=== PATIENT | female | born 1980 | race Caucasian/White ===

== ENCOUNTER → 2017-06-29 | Outpatient (CLI) | payer OTHER ==
[~2017-06-29] MED LIST: ACETAMINOPHEN-1 EAC1 PO; ALLERGY RELIEF10 M5 PO; AZITHROMYCIN 2250 MG; HYDROCODONE-ACE15 ML PO; IBUPROFEN 200200 M1 PO; PRILOSEC OTC20 MG PO
--- NOTE | ~2017-06-29 | SLE ---
[facility] [address] [place] [address] POLYSOMNOGRAPHY STUDY Name: SARAH COPPOLA Room #: REG [facility]#: [id number] Admission: 06/29/17 Attend Phys: Kevin Wagner MD, F Discharge: Date of : 80 Report #: [id number] THIS REPORT FOR: //name// CC: Tricia Wagner MD HISTORY: A 36-year-old, height 5 feet 8 inches, weight 262 pounds. The patient usually goes to bed between 9:00 and 9:30, gets out of bed at 9:00 a.m., does not feel refreshed. Positive snoring and daytime somnolence. COMMENTS: SLEEP SUMMARY: Total sleep time 281.5 minutes, sleep efficiency 59%. Sleep latency 3.5 minutes, REM latency 156 minutes. SLEEP STAGE: 1-18%, 2-60%, 3-6%, REM-16%. Central apnea 0, mixed apnea 1, obstructive apnea 0, hypopnea 23. Apnea-hypopnea index of 5.1 events per sleep hour. Non-REM AHI 4.3, REM AHI 9.4. Respiratory effort related arousal 4 events per sleep hour. Respiratory disturbance index of 9.2 events per sleep hour. Supine AHI 5.1 events per sleep hour. Periodic limb movement with arousal index of 0 events per sleep hour. Low oxygen saturation 88%. IMPRESSION: 1. Obstructive sleep apnea/hypopnea, G47.33. 2. Periodic limb movement with arousal index of zero events per sleep hour. 3. No significant arrhythmia noted. SUGGESTIONS: 1. In addition to specific therapy, the patient should be cautioned regarding driving or operating dangerous machinery unless fully alert. 2. TSH and weight loss may be considered. 3. We cannot recommend sleep position retraining as the patient was not seen in other positions besides supine. 4. Oral appliance or appropriate surgery may be considered with appropriate followup. further evaluation regarding etiology of snoring is recommended. 5. May consider either a home auto-titrating CPAP or a CPAP titration night depending on the patient's clinical circumstances. 6. If sign and symptoms do not improve with therapy, further evaluation is [facility] [address] [place] [address] POLYSOMNOGRAPHY STUDY Name: ANATSARAH Room #: [facility]#: [id number] Admission: 06/29/17 Attend Phys: Kevin Wagner MD, F Discharge: Date of : 80 Report #: [id number] recommended. Please do not hesitate to contact me if I may be of further assistance. <ELECTRONICALLY SIGNED> By: Ty Zee MD 07/09/174 56 40 Ty Zee MD /nt
== END ==
LOC: SLEEPLAB 13:24 → EDSTATUS 16:38
DX: G47.33 Obstructive sleep apnea (adult) (pediatric) (principal)

== ENCOUNTER 2017-10-25 05:23 | Inpatient (IN) | payer OTHER ==
[~2017-10-25] VITALS: Ht 172.7 cm; Wt 114.8 kg
--- NOTE | ~2017-10-25 | PATH ---
[facility] [address] [place] [address] PATHOLOGY RPT PROCEDURE Name: SIRENA LYN Room #: 412-P [facility] [place] M.R.#: [id number] Admission: 10/25/17 Date of : 80 Discharge: 10/26/17 Report #: [id number] Path Case #: [id number] [facility] Accession Number: [id number] . 01 Material submitted: . GASTRIC SLEEVE . 01 Clinical history: . Morbid obesity . 02 Diagnosis: Stomach, partial stomach, partial sleeve gastrectomy: - Mild chronic inflammation with rare lymphoid aggregates. - Negative for intestinal metaplasia or atrophy. (IUV:db; 10/26/2017) LBQ/10/26/2017 . 02 Electronically signed: . Valeria Glover MD, Pathologist NPI- [id number] . 01 Gross description: . The specimen is received in formalin, labeled "Sirena Lyn, gastric sleeve". Received is a partial gastrectomy specimen with a stapled margin of resection measuring 18.8 x 5.5 cm in greatest dimensions. The serosal surface is pink-carter and shiny. Opening the specimen reveals a pink-carter mucosa with multiple possible nodules ranging from 0.2-0.5 cm. The specimen is submitted representatively in cassettes A1-A3. (SDY; 10/25/2017) SYU/SYU . 02 Pathologist provided ICD-10: K29.50 . 02 CPT . 460356 Performed at: [address], [place] [id number] MD Carlos Alberto Nathan MD Phone: [phone] Performed at: [address] [id number] MD Valeria Glover MD Phone: [phone]
--- NOTE | ~2017-10-25 | O ---
[facility] [place] [address] OPERATIVE REPORT Name: SARAH COPPOLA Room #: 412-P [facility] IN .R.#: [id number] Admission: 10/25/17 Attend Phys: Kevin Wagner MD, F Discharge: 10/26/17 Date of : 80 Report #: [id number] THIS REPORT FOR: //name// CC: Tricia Wagner DATE OF SERVICE: 10/25/2017 SURGEON: Kevin Wagner M.D. COMMODITIES REQUIREMENTS ANALYST: Roshni Daniel M.D. PREOPERATIVE DIAGNOSES: 1. Morbid obesity (body mass index 40). 2. Gastroesophageal reflux disease. 3. Arthritis. 4. Depression. POSTOPERATIVE DIAGNOSES: 1. Morbid obesity (body mass index 40). 2. Intraabdominal adhesions. 3. Gastroesophageal reflux disease. 4. Arthritis. 5. Depression. PROCEDURES: 1. Laparoscopic sleeve gastrectomy with EGD. 2. Laparoscopic lysis of adhesions. ANESTHESIA: General endotracheal anesthesia and local anesthetic. ESTIMATED BLOOD LOSS: 5 mL. SPECIMEN: Lateral stomach. COMPLICATIONS: None appreciated. INDICATIONS FOR PROCEDURE: This is a 37-year-old female patient who stands 5 feet 8 inches, weighing 262 pounds at her last visit with a BMI of nearly 40 (39.9). The patient had no significant weight loss despite diet and exercise changes she instituted based on our previous discussions. The patient has had difficulty with her weight most of her life, worsened since early adulthood and with . She has tried numerous weight loss programs and plans including specialized diets, exercises and prescription medications. The most weight she has lost is 70 pounds. Any amount of weight she has lost, she has quickly regained plus additional weight after stopping the modality. She has numerous [facility] [address] [place] [address] OPERATIVE REPORT Name: SARAH COPPOLA Kimberly Room #: 412-P [facility] IN ..#: [id number] Admission: 10/25/17 Attend Phys: Kevin Wagner MD, F Discharge: 10/26/17 Date of : 80 Report #: [id number] weight associated comorbid conditions. She has been cleared from a multidisciplinary standpoint including clearance by her primary care physician, dietary clearance and psychological clearance. She presents today for laparoscopic sleeve gastrectomy for weight loss. OPERATIVE FINDINGS: On EGD, the patient's esophagus was normal down to the GE junction and Z-line where a hiatal hernia was not appreciated. Upon entrance into the stomach and beyond the pylorus to the third portion of the duodenum, there were no polyps, masses, diverticula or ulcers seen. On retroflexion of the scope, there was no evidence for a hiatal hernia. Laparoscopically, the patient had an enlarged stomach as expected. Her liver appeared normal. Intraabdominal adhesions were present, which required a laparoscopic takedown for port placement. The gastric sleeve staple line was started at 4 cm lateral/proximal to the pylorus and was located 3 cm lateral to the incisura the stomach and 1 cm lateral to the GE junction. There was no evidence for staple line leak. Immediately after applying the 10 mL of Tisseel to the staple line, the gastroscope was used to gently insufflate carbon dioxide into the sleeve to check for the presence of air bubbles forming within the Tisseel. As no air bubbles were seen, there was no evidence for a leak. The excised stomach held 1000 mL of fluid on the back table. No other significant intra-abdominal pathology was seen. At the conclusion of the operation, sponge, needle and instrument counts were correct. DESCRIPTION OF PROCEDURE IN DETAIL: After the benefits and risks of the procedure were explained to the patient which include but are not limited to risks of bleeding, infection, postoperative pain, postoperative expectations and risks of DVT and pulmonary embolus, informed consent was obtained. The patient was identified in the preoperative holding area. The patient was given IV antibiotics as documented in the chart in line with SCIP protocol. The patient was then taken to the operating room and was placed in the supine position. The patient was given IV sedation and was intubated without incident. SCDs were placed on the patient's bilateral lower extremities prior to induction of anesthesia. The patient had been placed in the modified low lying dorsal lithotomy position in stirrups on the beanbag. The beanbag and the patient were taped to the bed to secure the patient. A time-out was then performed to correctly identify the patient and procedure. An orogastric tube was placed by anesthesia. A bite block was placed and the fiberoptic EGD scope was passed into the patient's oropharynx, down the esophagus, into the stomach, and into the third portion of the duodenum. Findings are as noted above. The scope was slowly withdrawn into the antrum and the scope was retroflexed. The hiatus was visualized. The scope was then straightened and the end of the gastroscope was placed at the pylorus. The stomach was decompressed with the scope. [facility] [address] [place] [address] OPERATIVE REPORT Name: SARAH COPPOLA Room #: 412-P [facility] IN M.R.#: [id number] Admission: 10/25/17 Attend Phys: Kevin Wagner MD, F Discharge: 10/26/17 Date of : 80 Report #: [id number] The patient's abdomen was then prepped and draped in the standard sterile fashion with surgical prep. Local anesthetic was infiltrated into the skin and subcutaneous tissue in the left supraumbilical area where a sharp #15-blade scalpel was used to make a 5-mm incision. The 5-mm Visiport was placed intraperitoneally with the 5-mm 0-degree angled laparoscope. Pneumoperitoneum was then achieved with insufflation of carbon dioxide to 15 mmHg. A 5-mm 30-degree angled laparoscope was then inserted. The 15-mm port was placed in the right supraumbilical area after local anesthetic was infiltrated into the skin and subcutaneous tissue and an appropriately sized incision was made. Two additional 5 mm ports were placed in the left abdomen after local anesthetic was infiltrated and incisions were made. All ports were placed under direct visualization. The patient was then placed in reverse Trendelenburg position. Local anesthetic was infiltrated into the skin and subcutaneous tissue in the subxiphoid area and a 5-mm incision was made through which a 5-mm obturator was passed into the abdominal cavity through the fascia to create a passageway for the Niharika liver retractor. The retractor was placed to retract the liver anteriorly. The retractor was held in place with the [employer] apparatus. All abdominal adhesions were then taken down with blunt dissection, sharp dissection and judicious use of the ultrasonic dissector. The gastrosplenic ligament and short gastric vessels were then divided using the ultrasonic dissector with appropriate traction. Bleeding points were made hemostatic with the ultrasonic dissector. Dissection was carried proximally up to the left nandini of the diaphragm. The distal end point of dissection was then measured at 4 cm proximal to the pylorus. The short gastric vessels and gastrocolic ligaments were dissected to that level. The stomach was then rotated medially to visualize any posterior attachments/adhesions to the stomach. The adhesions were dissected with a combination of sharp dissection and use of the ultrasonic dissector. The endoscope was then slightly withdrawn to place it along the lesser curvature of the stomach. Suction was applied to the orogastric tube which was then removed, leaving the endoscope in place as a 34-Frisian bougie. The gastric sleeve was then created. Two black loads of the powered endoscopic LINDA stapler buttressed with Viji-Strips were used to staple and divide the stomach 4 cm proximal to the pylorus. Additional green loads buttressed with Viji-strips were used to staple off the remainder of the stomach using the endoscope as the bougie. Care was taken to ensure that greater than 3 cm of space was present between the incisura and the staple line. The stomach was fully transected and placed in the right upper quadrant of the abdomen for later removal. 10 mL of Tisseel was applied to the entire length of the staple line with the Duplospray aerosolizer to fully ensure hemostasis. The leak test was performed next. The sleeve was insufflated with the endoscope which was slowly withdrawn. No air bubbles were seen forming in the Tisseel laparoscopically. Endoluminally, no bleeding was seen. The stomach [address] [address] OPERATIVE REPORT Name: SARAH COPPOLA Room #: 412-P [facility] M.R.#: [id number] Admission: 10/25/17 Attend Phys: Kevin Wagner MD, F Discharge: 10/26/17 Date of : 80 Report #: [id number] was fully decompressed and the scope was slowly withdrawn. The Niharika liver retractor was then loosened from the [employer] apparatus and it was removed from the abdominal cavity without difficulty. The stomach was then removed from the patient's body through the 15-mm port under direct visualization. A small amount stretching of the fascia was required to create an opening large enough for removal of the stomach. After its removal, the 15-mm port site fascial opening was closed with an 0-PDS suture using the Steven-Elver laparoscopic fascial closure device. All ports were removed after the abdominal cavity was desufflated. The fascial suture was tied. Interrupted subcuticular 4-0 Monocryl sutures and Dermabond were used to close all skin incisions. The patient tolerated the procedure well. The patient was awakened, extubated and taken to the recovery room in stable condition with no apparent intraoperative complications. <ELECTRONICALLY SIGNED> By: Kevin Wagner MD, FACS 10/30/17 [id number] Kevin Wagner MD, FACS /nt
[~2017-10-25 05:23] MED LIST changes: -HYDROCODONE-ACE15 ML PO
[2017-10-25 08:31] VITALS: BP 131/86
[2017-10-25 16:30] VITALS: BP 147/95
[2017-10-25 20:35] VITALS: BP 136/82
[2017-10-26 00:50] VITALS: BP 110/69
[2017-10-26 04:27] LABS: ABSOLUTE NEUTROPHILS 8.1 thou/uL (1.4-8.2); BASOPHILS 0.2 % (0.0-2.0); EOSINOPHILS 0.5 % (0.0-3.0); HEMATOCRIT 35.3 % (37.0-47.0); HEMOGLOBIN 12.1 gm/dL (12.0-15.0); LYMPHOCYTES 19.1 % (24.0-44.0); MCH 28.9 pg (26.0-34.0); MCHC 34.2 g/dL (28.0-37.0); MCV 84.7 fL (80.0-100.0); MONOCYTES 7.6 % (1.0-8.0); PLATELET COUNT 282 thou/uL (150-400); POLYS 72.6 % (36.0-66.0); RBC 4.17 mil/uL (4.20-5.00); RDW 13.4 % (10.5-14.5); WBC 11.2 thou/uL (4.0-11.0)
[2017-10-26 04:43] LABS: CALCIUM 7.9 mg/dL (8.5-10.1); CREATININE 0.8 mg/dL (0.6-1.0); POTASSIUM 3.5 mmol/L (3.5-5.1)
[2017-10-26 04:54] VITALS: BP 94/49
[2017-10-26] MEDS ORDERED: HYDROCODONE-ACE15 ML PO (09:52)
[2017-10-26 13:30] VITALS: BP 94/49
== END 2017-10-26 14:00 | disposition home or self-care (01) | DRG 621 ==
LOC: TBA 05:23 → 4N 05:23 → PRE 12:25 → 4N 13:13 → PRE 13:42 → ENTRNSPT 10-26 13:56 → EDTRNSPTSTS 10-26 13:59 → 4N 10-26 14:00
PROVIDERS: Surgery
PROC: 0DB64Z3 Excision of Stomach, Percutaneous Endoscopic Approach, Vertical (ICD-10-PCS; principal; 2017-10-25)
DX: E66.01 Morbid (severe) obesity due to excess calories (principal); M19.90 Unspecified osteoarthritis, unspecified site; F32.9 Major depressive disorder, single episode, unspecified; K21.9 Gastro-esophageal reflux disease without esophagitis; Z88.6 Allergy status to analgesic agent; Z68.38 Body mass index [BMI] 38.0-38.9, adult
CPT/HCPCS: 10790; 50010; 50101; 50222; 50249; 50386; 50555; 50739; 50740; 50962; 51437; 52182; 52265; 53307; 53311; 54022; 54118; 55245; 56462; 56525; 56526; 57092; 62110; 62900; 70005